=== PATIENT | female | born 1965 | race Two or more races ===

== ENCOUNTER 2018-05-31 06:28 | Day surgery (SDC) | payer OTHER ==
[~2018-05-31] VITALS: Ht 162.6 cm; Wt 74.8 kg
[2018-05-31 06:50] VITALS: BP 117/72
[2018-05-31 09:46] VITALS: BP 98/64
== END 2018-05-31 09:30 | disposition home or self-care (01) ==
LOC: DS 06:28 → GI 10:30 → OR 10:30
PROVIDERS: Internal Medicine Gastroenterology
PROC: 0DJD8ZZ Inspection of Lower Intestinal Tract, Via Natural or Artificial Opening Endoscopic (ICD-10-PCS; principal; 2018-05-31 10:30)
DX: K59.00 Constipation, unspecified (principal); Z80.0 Family history of malignant neoplasm of digestive organs
CPT/HCPCS: 45378; J1610; J2250; J2310; J3010; J3490